=== PATIENT | female | born 1960 | race Hispanic/Latino ===

== ENCOUNTER 2016-09-23 12:25 | Emergency (ER) | payer BC, OTHER ==
[2016-09-23 12:32] VITALS: BP 156/93
[2016-09-23] MEDS ORDERED: DUONEB 0.5 MG-3 MG/3 ML SOLN IH ONE (14:38)
[2016-09-23] MEDS ORDERED: DELTASONE PO ONE (14:38)
--- NOTE | 2016-09-23 14:38 | Emergency Department Report ---
HPI - General Chief Complaint: Upper Respiratory Infection Time Seen by Provider: 09/23/16 14:34 - HPI HPI: Patient here reported that she has nasal congestion and coughing since last Friday. She states that she has a cold since last week and is getting worse. Denies any fever or chills denies any nausea vomiting. Denies any shortness of breath or chest pain. Says she took cough drops and it's not helping. ED Past Medical Hx - Past Medical History Previous Medical History?: No - Surgical History Past Surgical History?: Yes Hx Cholecystectomy: Yes Additional Surgical History: tubes tied - Family History Family history: no significant - Social History Smoking Status: Never Smoker Substance Use Type: None - Medications Home Medications: Home Medications Medication Instructions Recorded Confirmed Last Taken Type Azithromycin [Zithromax Z-MERARI] 250 mg PO DAILY #6 tab 09/23/16 Unknown Rx Cetirizine HCl [ZyrTEC] 10 mg PO QDAY #14 capsule 09/23/16 Unknown Rx Fluticasone [Flonase] 1 spray NS QDAY #1 bottle 09/23/16 Unknown Rx predniSONE [Deltasone] 50 mg PO QDAY #5 tab 09/23/16 Unknown Rx ED Review of Systems ROS: Stated complaint: CONGESTION Other details as noted in HPI Comment: All other systems reviewed and negative Constitutional: denies: chills, fever ENT: congestion. denies: ear pain, throat pain, dental pain Respiratory: cough. denies: orthopnea, shortness of breath, SOB with exertion, SOB at rest, stridor, wheezing Cardiovascular: denies: chest pain, palpitations, edema, syncope Gastrointestinal: denies: abdominal pain, nausea, vomiting, diarrhea Musculoskeletal: denies: back pain, arthralgia Skin: denies: rash Neurological: denies: headache, weakness, abnormal gait, vertigo Physical Exam - Physical Exam Vital Signs: Vital Signs 09/23/16 12:29 Temperature 98.2 F Pulse Rate 87 Respiratory 16 Rate Blood Pressure 156/93 O2 Sat by Pulse 97 Oximetry General: This is a 56-year-old female well-nourished well-developed in no acute distress. Physical Exam: Head: Normocephalic atraumatic Mouth: Moist, no pharyngeal exudate or erythema. Uvula is midline and oral airway is patent. No facial swelling. No peritonsillar abscesses. Nose: Congested with erythema to mucosa. Clear Drainage. Maxillary and frontal sinuses nontender to palpate Neck: Supple, no C-spine tenderness, no tracheal deviation. Nontender to palpate. no adenopathy Ears: Bilateral TMs congested without erythema. Bilateral EAC without any redness swelling or drainage. Abdomen: Soft, nontender to palpate in all quadrants, normal bowel sounds in all quadrant and negative CVA tenderness bilaterally. Eyes: Bilateral pupils equal and reactive to light, bilateral EOM intact. Bilateral sclera and conjunctiva without injection. Normal accommodation. Lungs: Clear to auscultate bilaterally no rhonchi wheezes or rales. Normal work of breathing .Congested cough. extremity; No CCE. +2 pulses. No neurovascular compromise Cardiovascular: S1-S2, regular rate rhythm. No murmurs. Skin: clean Dry and intact no rash no lesions Psych: Normal mood and behavior ED Course Vital Signs 09/23/16 12:29 Temperature 98.2 F Pulse Rate 87 Respiratory 16 Rate Blood Pressure 156/93 O2 Sat by Pulse 97 Oximetry - Reevaluation(s) Reevaluation #1: 09/23/16 15:34 Patient stable given DuoNeb times one treatment in emergency room. She was also given Deltasone 60 mg by mouth. ED Medical Decision Making - Medical Decision Making ED course: She had upper respiratory tract infection with cough. Is given DuoNeb times one treatment in emergency room along with Deltasone 60 mg by mouth. Patient given aspiration for diagnosis and treatment plan and she is in agreement. I told her that she can start taking this, Flonase and Zyrtec and if she is not better then she can start taking Zithromax. Patient discharged home in stable condition. Prescription for Flonase, Zyrtec, prednisone and Zithromax . Critical care attestation.: If time is entered above; I have spent that time in minutes in the direct care of this critically ill patient, excluding procedure time. ED Disposition Clinical Impression: Cough Upper respiratory infection Qualifiers: URI type: unspecified URI Qualified Code(s): J06.9 - Acute upper respiratory infection, unspecified Disposition: DISCHARGED TO HOME OR SELFCARE Is pt being admited?: No Does the pt Need Aspirin: No Condition: Stable Instructions: Upper Respiratory Infection (ED), Acute Cough (ED) Additional Instructions: increase fluid intake Take medication as prescribed. Drinking and antibiotic if he does not get better with prednisone, Zyrtec and Flonase. Prescriptions: Azithromycin [Zithromax Z-MERARI] 250 mg PO DAILY #6 tab Cetirizine HCl [ZyrTEC] 10 mg PO QDAY #14 capsule Fluticasone [Flonase] 1 spray NS QDAY #1 bottle predniSONE [Deltasone] 50 mg PO QDAY #5 tab Referrals: PRIMARY CARE, [Primary Care Provider] - 2-3 Days Forms: Work/School Release Form(ED)
== END 2016-09-23 15:47 | disposition home or self-care (01) ==
LOC: ED 12:25
DX: R05 Cough (principal); J06.9 Acute upper respiratory infection, unspecified; Z90.49 Acquired absence of other specified parts of digestive tract
CPT/HCPCS: 94640; 99283; J7512